=== PATIENT | male | born 1995 | race Caucasian/White ===

== ENCOUNTER 2016-05-17 13:47 | Emergency (ER) | payer OTHER | END 2016-05-17 15:13 | disposition home or self-care (01) | LOC: ER 13:47 | DX: J11.1 Influenza due to unidentified influenza virus with other respiratory manifestations (principal); G40.909 Epilepsy, unspecified, not intractable, without status epilepticus; Z79.899 Other long term (current) drug therapy | CPT/HCPCS: 87502; 87651 ==